=== PATIENT | female | born 1945 | race Caucasian/White ===

== ENCOUNTER 2018-12-30 14:47 | Emergency (ER) | payer OTHER ==
[~2018-12-30] VITALS: Ht 142.2 cm; Wt 81.6 kg
[2018-12-30 14:51] VITALS: BP 146/83
[2018-12-30] MEDS ORDERED: JANUVIA100 MG PO (14:58)
[2018-12-30] MEDS ORDERED: EMGALITY120 MG/1 M (14:58)
[2018-12-30] MEDS ORDERED: XARELTO20 MG PO (14:58)
[2018-12-30] MEDS ORDERED: WELLBUTRIN SR150 MG PO (14:59)
[2018-12-30] MEDS ORDERED: SINGULAIR 10 MG10 M1 PO (14:59)
[2018-12-30] MEDS ORDERED: MYRBETRIQ25 MG PO (14:59)
[2018-12-30] MEDS ORDERED: JARDIANCE25 MG PO (15:00)
[2018-12-30] MEDS ORDERED: SERTRALINE HCL50 MG PO (15:00)
[2018-12-30] MEDS ORDERED: TOPROL XL25 MG PO (15:00)
[2018-12-30] MEDS ORDERED: LYRICA225 MG PO (15:01)
[2018-12-30] MEDS ORDERED: TORSEMIDE100 MG PO (15:01)
[2018-12-30] MEDS ORDERED: KLOR-CON 1010 MEQ PO (15:02)
== END 2018-12-30 17:40 | disposition home or self-care (01) ==
LOC: ER 14:47
DX: G43.909 Migraine, unspecified, not intractable, without status migrainosus (principal); E11.9 Type 2 diabetes mellitus without complications; I50.9 Heart failure, unspecified; Z91.048 Other nonmedicinal substance allergy status; Z88.8 Allergy status to other drugs, medicaments and biological substances